=== PATIENT | female | born 2005 | race Caucasian/White ===

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

== ENCOUNTER 2024-01-15 08:03 | Emergency (ER) | payer BC, SELFPAY ==
[2024-01-15 08:07] VITALS: BP 110/65; PULSE 75; RESP 15; O2SAT 100
[2024-01-15 08:14] VITALS: BP 110/65; PULSE 75; RESP 15; O2SAT 100
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
--- NOTE | 2024-01-15 08:30 | DI.US_ITS ---
Exam(s) US ABD PELV TRANSVAG NON-OB EXAM: US ABD PELV TRANSVAG NON-OB CLINICAL HISTORY: LLQ and LUQ abd Pain, Has IUD TECHNIQUE: Ultrasound of the abdomen and pelvis was performed both transabdominal and transvaginal. COMPARISON: US POCUS EXAM from 11/14/2023 FINDINGS: ABDOMEN: There is no ascites evident. LIVER: There are no hepatic lesions evident nor obvious dilatation of intrahepatic ducts. GALLBLADDER/BILIARY: There are no gallstones. No gallbladder wall edema nor pericholecystic fluid. The common hepatic duct isnot dilated, measuring 3mm at the level of kristal hepatis. PANCREAS: There is no evidence of pancreatic mass nor dilatation of the pancreatic duct. SPLEEN: The spleen is not enlarged and there are no intrasplenic lesions evident. KIDNEYS:Kidneys exhibit normal size with no evidence of solid mass, calculus, nor hydronephrosis. No cortical cysts evident. ABDOMINAL AORTA: There is no evidence of abdominal aortic aneurysm. IVC: Normal diameter where visualized. PELVIS: UTERUS: Measures 6.2 cm length x 3.2 cm AP x 4.7 cm wide. There are no uterine fibroids. Endometrial thickness measures 4 mm. There is an IUD again noted in the endometrial cavity which appears to be in satisfactory position. 3D rendering performed CERVIX: There are no obvious nabothian cysts. RIGHT OVARY: Measures 2.5 x 2.2 x 2.1 cm No significant cysts nor masses evident in the right ovary. LEFT OVARY: Measures 0.5 x 2.2 x 2.1 cm Contains the dominant follicle which measures 1.1 x 1.5 x 1.2 cm. CUL-DE-SAC: No free fluid evident. IMPRESSION: 1. No evidence of cholelithiasis nor dilatation of the biliary tree. 2. No other significant ultrasound findings in the upper abdomen. 3. There is no ascites. 4. Normal appearing uterus and age-appropriate endometrium. 5. IUD is in satisfactory position in the endometrial canal. 6. Dominant follicles in left ovary and measures 1.5 cm. All other very in follicles measure less th an 1 cm. 7. No free fluid. DATA REPOSITORY:
[2024-01-15] MEDS: Normal Saline 1,000 ML 1000 ML IV (08:48)
[2024-01-15] MEDS: Ondansetron 4 MG/2 ML VIAL IVP (08:49)
[2024-01-15] MEDS: Normal Saline Flush 10 ML SYR IVP (08:49)
[2024-01-15 08:56] LABS: Abs Immature Grans 0.02 10^3/uL (0.0-0.06); Absolute Basophil Count 0.03 10^3/uL (0.0-0.2); Absolute Eosinophil Count 0.03 10^3/uL (0.0-0.7); Absolute Lymphocyte Count 1.18 10^3/uL (1.2-3.4); Absolute Monocyte Count 0.37 10^3/uL (0.1-0.8); Absolute Neutrophil Count 3.64 10^3/uL (1.2-6.7); Basophils % 0.6 %; Eosinophils % 0.6 %; HCT 43.4 % (36.0-46.0); HGB 14.9 g/dL (11.2-15.7); Immature Grans % 0.4 %; Lymphocytes % 22.4 %; MCHC 34.3 % (32.0-36.0); MCV 90 fL (80-95); MPV 9.8 fL (8.0-11.0); Platelet Count 252 10^3/uL (130-400); RDW 12.1 % (11.7-14.6); RDW-SD 40.3 fL; WBC 5.27 10^3/uL (4.4-10.8)
[2024-01-15 08:57] LABS: Bilirubin Small (Negative); Blood Negative (Negative); Clarity Sl Cloudy (Clear); Glucose 100 mg/dL (Negative); Ketones Trace mg/dL (Negative); Leukocyte Esterase Trace (Negative); Nitrite Negative (Negative); Specific Gravity >= 1.030 (1.005-1.025)
[2024-01-15 09:04] LABS: RBC Negative HPF (0-2); WBC 0-2 HPF (0-5)
[2024-01-15 09:05] LABS: Bacteria Few HPF (Negative); C & S Indicated? No; Casts 0-2 Hyaline LPF (Negative); Crystals Few Amorphous HPF (Negative); Epithelial Cells Many HPF (Negative); Mucus Moderate (Negative)
[2024-01-15 09:36] LABS: ALT 33 U/L (14-59); AST 23 U/L (15-37); Albumin 4.7 g/dL (3.4-5.0); Alkaline Phosphatase 58 U/L (46-116); Anion Gap 10.1 mmol/L (3-11); BUN 13 mg/dL (7-18); Bilirubin, Total 1.1 mg/dL (0.2-1.0); CO2 27.9 mmol/L (21.0-32.0); CREATININE 0.8 mg/dL (0.55-1.02); Calcium 9.7 mg/dL (8.5-10.1); Chloride 107 mmol/L (98-107); Estimated GFR 108.78 (mL/min/1.73m2); Glucose 94 mg/dL (74-106); Lipase 35 U/L (16-77); Magnesium 2.1 mg/dL (1.8-2.4); Potassium 3.5 mmol/L (3.5-5.1); Sodium 145 mmol/L (136-145); Total Protein 8.2 g/dL (6.4-8.2)
[2024-01-15] MEDS: Ketorolac 15 MG/ML VIAL IVP (10:26)
== END 2024-01-15 10:49 | disposition home or self-care (01) ==
PROVIDERS: Emergency Provider Registered Nurse Emergency; PCP Pediatrics
DX: R10.31 Right lower quadrant pain (principal); R10.32 Left lower quadrant pain; N83.02 Follicular cyst of left ovary; Z87.891 Personal history of nicotine dependence
CPT/HCPCS: 36415; 80053; 81025; 83690; 96361; 96374; 99285; 76700; 76830; 76856; 81003; 81015; 83735; 85025; 99284; J1885; J2405

== ENCOUNTER 2024-04-04 08:51 | Emergency (ER) | payer BC, SELFPAY ==
[2024-04-04 08:58] VITALS: BP 96/70; PULSE 93; RESP 22; TEMP 37.1; O2SAT 100
--- NOTE | 2024-04-04 09:45 | DI.RAD_ITS ---
Exam(s) XR CHEST 2V PA LATERAL EXAM: XR CHEST 2V PA LATERAL CLINICAL HISTORY: cough TECHNIQUE: 2D digital imaging was performed. Two views. COMPARISON: CR,XR XR CHEST 2V PA LATERAL from 07/29/2023 FINDINGS: HEART: Normal size. Aorta: Not dilated. PULMONARY VASCULATURE: Normal. MEDIASTINUM: Unremarkable. LUNGS: Clear. PLEURAL SPACE: No pleural effusion or pneumothorax. BONE:Unremarkable for age. SOFT TISSUES: Unremarkable. IMPRESSION: No acute abnormality. DATA REPOSITORY: RADIATION DOSE DELIVERED:
[2024-04-04 10:22] LABS: COVID-19 PCR Negative (Negative); Influenza A PCR Negative (Negative); Influenza B PCR Negative (Negative); RSV PCR Negative (Negative)
[2024-04-04 10:25] LABS: Source Nasopharynx
--- NOTE | 2024-04-04 10:29 | ED.GENADUL_ITS ---
Discharge Plan Disposition Patient Disposition: Home Condition: Stable Discharge Details Clinical Impression: Bronchitis Primary Care Provider: Eva Reis ED Provider: Dereje Damon Home Meds and New Rx's Prescriptions: New azithromycin 250 mg tablet See Rx Instructions .ROUTE .COMPLEX Qty: 6 0RF Rx Instructions: For 250 mg dose pack: take 500 mg today (day 1), then 250 mg for 4 days (days 2-5) Continued Mirena 20 mcg/24 hours (5 yrs) 52 mg intrauterine device 1 device IY ONCE albuterol sulfate 2.5 MG/3 ML solution for nebulization 2.5 mg Inhalation TID albuterol sulfate [Ventolin HFA] 60 PUFF HFA aerosol inhaler 2 puff Inhalation Q4H PRN PRN lansoprazole [Prevacid] 30 mg Capsule,Delayed Release(Dr/Ec) 1 cap PO DAILY prochlorperazine maleate [Compazine] 10 mg tablet 10 mg PO Q8H PRNQty: 14 0RF Discharge Instructions Instructions: Azithromycin (Systemic), Bronchitis, Adult ED Additional Instructions: You were seen in the emergency department for your cough. This has been ongoing for over a week, I am treating empirically with 5-day course of an antibiotic called azithromycin, please continue your tjuo-fuc-[id number] cough medicines, use your at home inhalers, stay well-nourished and well-hydrated, there is no pneumonia on your chest x-ray, you were negative for COVID flu and RSV. Please obtain an [id number] oxygen saturation monitor, return for any worsening respiratory distress like oxygen readings at 88%, severe fever despite Tylenol and ibuprofen not consistent dosing intervals, intractable nausea or vomiting, severe chest pain especially with exertion. Referrals: Eva Reis [Primary Care Provider] - Discharge Data Discharge Date/Time-TO BE ENTERED AT DEPARTURE: 04/04/24 10:51 HPI General Date/Time Provider Initiated Documentation: 04/04/24 08:53 . HPI Narrative: 18 year-old female presents to ED today by POV/ambulating with a chief complaint of persistent cough, chest irritation with coughing, mild shortness of breath, sore throat with onset noted for a week or so. Quality described as generalized cough and cold symptoms, no radiation to high fever, inability to tolerate PO intake, respiratory distress,. Severity is described as moderate. Palliating factors include nothing specific attempted. Provoking factors include nothing specific. Patient not anticoagulated. Related Data Home Medications ?Medication ?Instructions ?Recorded ?Confirmed albuterol sulfate 2.5 mg/3 mL 2.5 mg inhalation TID 04/12/16 04/04/24 (0.083 %) solution for nebulization albuterol sulfate 90 mcg/actuation 2 puff inhalation Q4H PRN PRN 04/12/16 04/04/24 aerosol inhaler (Ventolin HFA) lansoprazole 30 mg capsule,delayed 1 cap PO DAILY 09/30/18 04/04/24 release (Prevacid) levonorgestrel 21 mcg/24 hr (up to 1 device intrauterine ONCE 06/05/19 04/04/24 8 years) 52 mg intrauterine device (Mirena) prochlorperazine maleate 10 mg 10 mg PO Q8H PRN #14 tabs 10/19/22 04/04/24 tablet (Compazine) azithromycin 250 mg tablet See Rx Instructions PO .COMPLEX #6 04/04/24 tabs Previous Rx's ?Medication ?Instructions ?Recorded prochlorperazine maleate 10 mg 10 mg PO Q8H PRN #14 tabs 10/19/22 tablet (Compazine) azithromycin 250 mg tablet See Rx Instructions PO .COMPLEX #6 04/04/24 tabs Allergies Allergy/AdvReac Type Severity Reaction Status Date / Time No Known Allergies Allergy Verified 04/04/24 09:01 General Stated Complaint: RespSymp CAMI: 4 Review of Systems All systems reviewed & are unremarkable except as noted in HPI and below Exam Narrative Exam Narrative: GENERAL APPEARANCE: Well-nourished, non-toxic, awake and alert, atraumatic, no acute distress. SKIN: Warm, pink, dry, intact, without rashes/lesions/ulcerations. HEAD: Normocephalic, atraumatic, normal hair distribution for gender/age. EYES: Normal conjunctiva, no exudates on lids/lashes. ENT: Nares patent, no circumoral cyanosis, no facial swelling NECK: Supple, trachea midline, painless cervical ROM. LUNGS/CHEST: Lungs CTA bilaterally- no rhonchi/rales/wheezes diffusely, non- labored respirations, normal A/P diameter, symmetrical expansion, no chest wall deformity HEART (CV/PV): Regular rate and rhythm without murmur, no peripheral edema, no JVD. ABDOMEN: Soft, non-distended, no guarding. MSK: Normal ROM, no swelling/deformity to bilateral UEs or LEs, moving all extremities without weakness, no cyanosis, spine midline without tenderness, normal curvature. NEURO: Mental Status AAOx4 - alert to person, place, time, events No facial droop, no forehead involvement. Motor: No focal weakness - strength 5/5 in bilateral UEs and LEs, proximal and distal, symmetric. Sensory: sensation intact to light touch globally. Gait normal: patient ambulated without ataxia into ED room. PSYCH: euthymic, cooperative, pleasant, appropriate speech Course Vital Signs Vital signs: Vital Signs Temperature 37.1 C 04/04/24 08:58 Pulse 93 H 04/04/24 08:58 Respiratory Rate 22 04/04/24 08:58 Blood Pressure 96/70 L 04/04/24 08:58 Pulse Oximetry 100 04/04/24 08:58 Temperature 37.1 C 04/04/24 08:58 Temperature Source Skin 04/04/24 08:58 Pulse 93 H 04/04/24 08:58 Respiratory Rate 22 04/04/24 08:58 Blood Pressure 96/70 L 04/04/24 08:58 Blood Pressure Position Sitting 04/04/24 08:58 Pulse Oximetry 100 04/04/24 08:58 Oxygen Delivery Method Room Air 04/04/24 08:58 Oxygen Flow Rate 0 04/04/24 08:58 Pain Level 3 04/04/24 08:58 Lab/Test Results Lab/Test Results: Laboratory Tests Range/Units 04/04/24 09:28 COVID-19 Source Nasopharynx SARS-CoV-2 (PCR) (Negative) Negative Influenza Type A (PCR) (Negative) Negative Influenza Type B (PCR) (Negative) Negative RSV (PCR) (Negative) Negative POC- Test(urine) Negative Medical Decision Making This dictation utilizes [id number] dictation software and may contain unedited grammatical errors. 18 year-old female presents to ED today by POV/ambulating with a chief complaint of persistent cough, chest irritation with coughing, mild shortness of breath, sore throat with onset noted for a week or so. Quality described as generalized cough and cold symptoms, no radiation to high fever, inability to tolerate PO intake, respiratory distress,. Severity is described as moderate. Palliating factors include nothing specific attempted. Provoking factors include nothing specific. Patients' medical history: Noncontributory. Family and social history: Noncontributory. Pertinent exam findings / vital signs include lungs CTA, no respiratory distress, benign abdomen, nontoxic and afebrile. Differential / pathologies of concern include bronchitis, pneumonia, viral syndrome, not respiratory distress. Diagnostic studies of: -Chest x-ray, COVID/flu/RSV PCR-both benign. Interventions of: -Trial of Z-Jaspreet as onset was more than a week ago. ED Course/Assessment/Plan: 18-year-old well-appearing female without any respiratory distress presents with a subjective wet sounding cough, chest x-ray shows no pneumonia, COVID and flu and RSV swabs are negative, reasonable to treat with azithromycin trial for antibiotic relief, recommend continuing recq-jhr-clmuwch cold medicines at normal dosing's. Findings not consistent with hypoxic respiratory failure, pneumonia, sepsis. Disposition of bronchitis. Patient verbalized understanding of the plan and return to ED criteria and engaged in shared decision making. Medical Records Medical records reviewed: Yes I reviewed the patient's medical records. Imaging Data Radiologic Study: Attestation: I personally reviewed and interpreted this imaging study as follows: Imaging: X-Ray Radiologist's impression: EXAM: XR CHEST 2V PA LATERAL CLINICAL HISTORY: cough TECHNIQUE: 2D digital imaging was performed. Two views. COMPARISON: CR,XR XR CHEST 2V PA LATERAL from 07/29/2023 FINDINGS: HEART: Normal size. Aorta: Not dilated. PULMONARY VASCULATURE: Normal. MEDIASTINUM: Unremarkable. LUNGS: Clear. PLEURAL SPACE: No pleural effusion or pneumothorax. BONE:Unremarkable for age. SOFT TISSUES: Unremarkable. IMPRESSION: No acute abnormality. Lab Data Lab results reviewed: Yes I reviewed the patient's lab results. Labs: Laboratory Tests Range/Units 04/04/24 09:28 COVID-19 Source Nasopharynx SARS-CoV-2 (PCR) (Negative) Negative Influenza Type A (PCR) (Negative) Negative Influenza Type B (PCR) (Negative) Negative RSV (PCR) (Negative) Negative Quality:SDOH Health Related Social Needs: No Data to Display PFSH All Active Problems (Updated 04/04/24 @ 10:33 by GIANNA Schmidt) Bronchitis (Acute) Vulvitis (Acute) Encounter for screening for bacterial sexually transmitted infection (Acute) Syncope and collapse (Acute) Dehydration (Acute) Vomiting (Acute) Hip pain (Acute) UTI (urinary tract infection) (Acute) Concussion (Acute) Smoker unmotivated to quit (Acute) Benign breast cyst in female (Acute) Presence of IUD (Acute) Contraception (Acute) Allergic rhinitis (Acute 01/05/14) Medical History (Updated 04/04/24 @ 10:33 by GIANNA Schmidt) GERD (gastroesophageal reflux disease) Allergic rhinitis due to pollen (08/23/15) Surgical History History of tonsillectomy Family History Mother Diabetes Social History Smoking/Tobacco Use Status: Former Tobacco Use Quit Date: 07/26/23 Smoking risk assessment performed?: Yes Alcohol Intake: never Drug use: Never Substance use type: does not use Housing: house Current gender identity: female Do you feel safe at home: Yes Do you feel safe in your relationship?: Yes Additional Social history: unable to assess privately Female Reproductive History Menstrual control method: progestin IUCD and condoms History History 0 Para Hx # Term Pregnancies Multiple births Hx # Pregnancies Ectopic pregnancies AB induced Hx Number of Living Children AB spontaneous
[2024-04-04 10:47] VITALS: BP 111/69; PULSE 68; RESP 20; TEMP 37.1; O2SAT 100
[2024-04-04 10:50] VITALS: BP 111/69; PULSE 68; RESP 20; O2SAT 100
== END 2024-04-04 10:51 | disposition home or self-care (01) ==
PROVIDERS: Emergency Provider Physician Assistant; PCP Pediatrics
DX: J40 Bronchitis, not specified as acute or chronic (principal); Z87.891 Personal history of nicotine dependence
CPT/HCPCS: 81025; 87637; 99284; 71046; 99283

== ENCOUNTER 2024-06-16 11:31 | Outpatient (REF) | payer BC, SELFPAY | END 2024-06-16 11:32 | disposition home or self-care (01) | LOC: LBN 11:31 | PROVIDERS: PCP Pediatrics; Visit Provider Nurse Practitioner Women's Health | DX: N76.0 Acute vaginitis (principal) | CPT/HCPCS: 87480; 87510; 87660 ==